=== PATIENT | female | born 1945 | race Caucasian/White ===

== ENCOUNTER 2019-06-08 07:09 | Inpatient (IN) | payer OTHER ==
[~2019-06-08] VITALS: Ht 182.2 cm; Wt 82.0 kg
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
[2019-06-08 07:11] VITALS: BP 167/80
[2019-06-08 07:37] LABS: ABSOLUTE NEUTROPHILS 7.2 thou/uL (1.4-8.2); BASOPHILS 1.3 % (0.0-2.0); EOSINOPHILS 2.4 % (0.0-3.0); HEMATOCRIT 39.7 % (37.0-47.0); HEMOGLOBIN 13.1 gm/dL (12.0-15.0); LYMPHOCYTES 19.6 % (24.0-44.0); MCV 87.9 fL (80.0-100.0); MONOCYTES 6.6 % (1.0-8.0); PLATELET COUNT 297 thou/uL (150-400); POLYS 70.1 % (36.0-66.0); RBC 4.51 mil/uL (4.20-5.00); RDW 14.2 % (10.5-14.5); WBC 10.2 thou/uL (4.0-11.0)
[2019-06-08] MEDS ORDERED: VITAMIN B-121000 MC2 SUBLING (07:40)
[2019-06-08] MEDS ORDERED: DEPAKOTE 250MG250 MG PO (07:40)
[2019-06-08] MEDS ORDERED: LORAZEPAM 0.50.5 MG PO (07:42)
[2019-06-08] MEDS ORDERED: SEROQUEL 25 MG25 M1 PO (07:42)
[2019-06-08 07:44] LABS: ANION GAP 9 mmol/L (7-16); BUN 11 mg/dL (7-18); CHLORIDE 106 mmol/L (98-107); CO2 27 mmol/L (21-32); CREATININE 0.9 mg/dL (0.6-1.0); GLUCOSE 107 mg/dL (74-106); POTASSIUM 3.6 mmol/L (3.5-5.1); SODIUM 142 mmol/L (136-145)
[2019-06-08 07:51] LABS: URINE BILIRUBIN NEGATIVE (Negative); URINE BLOOD 1+ (Negative); URINE CLARITY CLEAR; URINE COLOR YELLOW; URINE GLUCOSE-RANDOM* NEGATIVE (Negative); URINE KETONES NEGATIVE (Negative); URINE NITRITE-REFLEX NEGATIVE (Negative); URINE PROTEIN (DIPSTICK) NEGATIVE (Negative); URINE UROBILINOGEN 0.2 E.U./dl (0.2-1.0)
[2019-06-08 07:52] LABS: URINE LEUKOCYTES-REFLEX 2+ (Negative)
[2019-06-08 07:54] LABS: ALBUMIN 4.2 g/dL (3.4-5.0); MAGNESIUM 1.9 mg/dL (1.8-2.4); SGOT 21 U/L (15-37); SGPT 24 U/L (30-65); TOTAL BILIRUBIN 0.4 mg/dL (<0.1-1.0); TOTAL PROTEIN 7.6 g/dL (6.4-8.2); TROPONIN-I <0.06 ng/mL (<0.06)
[2019-06-08 08:00] LABS: AMP/METHAMP Negative (Negative); BARBITURATES Negative (Negative); BENZODIAZEPINES Negative (Negative); COCAINE Negative (Negative); METHADONE Negative (Negative); OPIATES Negative (Negative); PCP Negative (Negative)
[2019-06-08 08:38] LABS: SQUAMOUS 0-3 Few /LPF (0-3)
[2019-06-08 08:40] LABS: BACTERIA-REFLEX 1-9 Few /HPF (None Seen); CASTS None Seen /LPF (None Seen); CRYSTALS None Seen /LPF (None Seen); URINE RBC None Seen /HPF (0-2); URINE WBC-REFLEX 0-5 Rare /HPF (0-5)
--- NOTE | 2019-06-08 09:49 | EKG ---
[facility] [place] [address] ELECTROCARDIOGRAM REPORT Name: MARIAM LOPEZ Room #: 170-7 ADM IN M.R.#: [id number] Admission: 06/08/19 Attend Phys: Alphonso Ochoa DO Discharge: Date of : 41 Report #: [id number] THIS REPORT FOR: cc: José Miguel Oliveros MD, James A. MD Couchonnal, Luis F. MD ~ THIS REPORT FOR: //name// [facility] ED Test Date: 2019-06-08 Test Time: 07:48:20 Pat Name: MARIAM LOPEZ Department: Room: [facility] Gender: F Clay Digger: melba : 1945 Requested By: Damian Banks Order Number: [id number] MD: Marciano Calhoun Measurements Intervals [place] Rate: 80 P: 69 IN: 168 QRS: 52 QRSD: 93 T: 51 QT: 395 QTc: 456 Interpretive Statements Sinus rhythm No previous ECG available for comparison Electronically Signed On 06-08-2019 9:47:41 CDT by Marciano Calhoun [email or web address] <ELECTRONICALLY SIGNED> By: Marciano Calhoun MD 06/08/19 0947 Marciano Calhoun MD /HEMA
--- NOTE | 2019-06-08 10:21 | NUR ---
Report called LILIANA Pina
[2019-06-08 10:48] VITALS: BP 161/98
[2019-06-08 11:29] VITALS: BP 174/78
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
[2019-06-08 21:15] VITALS: BP 150/82
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
--- NOTE | 2019-06-09 02:36 | NUR ---
ASSUMED CARE OF PT AT 1900HRS. PT IS ALERT BUT ONLY ORIENTED TO SELF. PT IS UP AD [place]. PT WAS PLEASANT AND SOCIALIZING WITH PEERS. ASSESSMENT CHARTED. PT DENIED PAIN, NAUSEA, SI, HI, AH, AND VH. PT TOOK ALL MEDS WHOLE WITH WATER. PT WAS ABLE TO GET COMFORTABLE AND SLEEP PART OF THE SHIFT. VSS ANS NO S/S OF ACUTE DISTRESS. WILL CONTINIUE TO MONITOR.
--- NOTE | 2019-06-09 07:50 | NUR ---
0700 ASSUMED CARE OF PATIENT, PATIENT SLEEPING IN BED WITH EYES CLOSED. WILL CONTINUE TO OBSERVE.
[2019-06-09 08:04] VITALS: BP 122/84
--- NOTE | 2019-06-09 09:25 | NUR ---
PATIENT UP IN BATHROOM GETTING READY TO COME OUT TO DAYROOM. MEDICATIONS TAKEN WHOLE WITHOUT DIFFICULTY. PATIENT STATES 'I HAVE NO GOAL FOR TODAY, I HAVE NOT THOUGHT ABOUT IT". NO CONCERNS VOICED AT THIS TIME. LUNG SOUNDS CLEAR, ACTIVE BS, NO C/O PAIN. IN DAYROOM EATING BREAKFAST. WILL CONTINUE TO OBSERVE.
--- NOTE | 2019-06-09 16:33 | NUR ---
SUGAR contacted [facility] to speak about pt, but was told that all staff who could talk with SUGAR about pt was not in the office and to call back on Wednesday. SUGAR contacted Karin and received background info. 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 Through autopsy, pt's mother was confirmed to have Alzheimers and both grandparents were dx with dementia. Pt is , and does not have children. She does have a good relationship with both of her sisters. Karin said she will bring up shirts with short sleeves for pt on 06/10/19. SUGAR team will continue to follow pt during his stay on this unit.
--- NOTE | 2019-06-09 18:03 | NUR ---
PATIENT CONFUSED AND ASKING FOR HER PURSE. WANTING TO LEAVE STATING SHE WAS ONLY HERE VISITING. DISK RECORDIST ATTEMPTED TO REORIENT PATIENT. PATIENT WALKS AWAY FROM DISK RECORDIST. WILL CONTINUE TO OBSERVE
[2019-06-09 19:37] VITALS: BP 123/75
--- NOTE | 2019-06-09 22:57 | NUR ---
Care assumed of patient at 1915: Patient seated quietly in dayroom at start of shift. Interacting well with another peer. Patient became increasingly confused as the night progressed. Patient originally requested for her purse. Patient was able to be re-directed that her purse is locked up for safety. Patient accepted that answer. As the night progressed, patient demanding her purse, entering nurses station, verbally threatening to nursing staff. Patient stated that she will be staying at the hospital to monitor another patient for the night. 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 Patient alert and oriented to person only. Confused and forgetful. Patient denies pain or discomfort. Denies depression and anxiety. Denies SI/HI/AH/VH. No physical aggression shown. Patient became more restless as the night progressed, pacing the halls. Patient shown to her room several times but soon forgot. Patient stating that she needs to get to the 5th floor. Patient re-directed that she is on the 5th floor. Patient has a blunted, suspicious appearance. Easily irritable and agitated. Patient required constant assistance before she would lay in bed to go to bed. Patient worried that she needs to get up early in the AM to retrieve her purse so she can go to work. Patient laying quietly in bed at this time.
--- NOTE | 2019-06-10 08:02 | NUR ---
0700 ASSUMED CARE OF PATIENT, PATIENT IN BED AT THAT TIME. 0730 PATIENT UP IN BATHROOM GETTING READY FOR BREAKFAST.
--- NOTE | 2019-06-10 13:30 | NUR ---
PATIENT CONFUSED AND SLIGHTLY AGITATED. PATIENT REQUESTING TO LEAVE AND ASKING HOW TO GET OUT THE DOOR. ALODIZE MACHINE HELPER ATTEMPTED TO EXPLAIN TO PATIENT ABOUT HER STAY HERE AND PATIENT INSISTS THAT SHE WANTS TO CANCEL HER APPOINTMENT AND IS LEAVING. INSISTS THAT HER FRIEND (ANOTHER PATIENT) IS LYING TO ALODIZE MACHINE HELPER AND HAS BEEN LYING LATELY. WILL CONTINUE TO OBSERVE.
[2019-06-10 20:03] VITALS: BP 137/78
--- NOTE | 2019-06-10 21:32 | NUR ---
Care assumed of patient at 1915: Patient up and wandering halls at start of shift. Patient appears restless, blunted affect. Patient has suspicious appearance when speaking with staff. Patient sarcastic and irritable at times. Patient alert and oriented to person only. Patient confused and forgetful. Patient denies depression or anxiety. Denies SI/HI/AH/VH. Patient required several re-directions on current location and time. Patient not observed interacting much with peers. As staff attempted to interact with patient, she tried to avoid interaction. Patient pilfering through personal belongings. Observed moving linens and items from shelf to shelf, to bathroom, to bed. Patient took HS medication whole without difficulty. Ate 100% HS snack. Patient has not requested her purse thus far this shift. Patient has come out of her room a couple times, looking around, asking what is going on. Patient appears paranoid at times about surroundings and other peers. Patient did yell at nurse while nurse was attempting to re-orient her. No physical aggression observed at this time.
[2019-06-11 07:43] VITALS: BP 158/83
--- NOTE | 2019-06-11 09:29 | NUR ---
0700 ASSUMED CARE OF PATIENT, PATIENT IN ROOM AT THAT TIME. 0800 PATIENT IN DAYROOM SITTING AT TABLE WITH ANOTHER PATIENT EATING BREAKFAST AND COMMUNICATING WELL. AFTER BREAKFAST PATIENT UP AMB IN [place] THEN TO ROOM AT 0840. PATIENT STARTED TO ARGUE WITH LICENSED LAND SURVEYOR LICENSED LAND SURVEYOR WAS COMING IN ROOM WITH ROOMMATE. PATIENT STATED "THIS IS NOT HER ROOM AND SHE CAN NOT COME IN". LICENSED LAND SURVEYOR CALLED CONE BAKER MACHINE AND CONE BAKER MACHINE SPOKE WITH PATIENT IN HALLWAY. PATIENT CONFUSED AND ARGUMENTIVE REGARDING HER ROOM AND ROOMMATE. PATIENT SETTLED DOWN ONCE ROOMMATE WAS OUT OF ROOM. WILL CONTINUE TO OBSERVE.
[2019-06-11 19:50] VITALS: BP 147/83
[2019-06-11 22:46] VITALS: BP 147/83
--- NOTE | 2019-06-12 00:08 | NUR ---
PT HAS BEEN IN HER ROOM ALL NIGHT. SHE OCCASIONALLY GETS UP THINKING IT'S DAYTIME AND IS REMINDED BY STAFF THAT IT IS NIGHT TIME. SHE WALKS AROUND HER ROOM AND THEN LAYS BACK DOWN. SHE IS CURRENTLY SLEEPING. VSS. DENIES PAIN. PT IS PLEASANT BUT CONFUSED AND A/O X 1. PATIENT DENIES SI/HI/AVH. SHE IS CURRENTLY SLEEPING. APPEARS COMFORTABLE. ROUTINE ROUNDS TO ASSESS FOR STATUS AND SAFETY OF PATIENT. WILL CONTINUE TO MONITOR.
[2019-06-12 08:43] VITALS: BP 120/70
--- NOTE | 2019-06-12 18:18 | NUR ---
Assumed patient care at 0715. Vital signs have been stable. No new medical issues. Patient has been calm and cooperative; has been compliant with medications. No aggressive behaviors, no verbal aggression noted. Appetite is good. Patient wanders in and out of peers rooms, displays confusion. She is alert and oriented to self. Will continue to monitor and report to on-coming RN.
[2019-06-12 20:14] VITALS: BP 147/83
[2019-06-12 20:30] VITALS: BP 147/83
--- NOTE | 2019-06-13 03:04 | NUR ---
PATIENT UP IN DAYROOM UNTIL SHE WENT TO BED AROUND 2330. PATIENT HAS BEEN CALM TONIGHT. SHE HAS DISORGANIZED THINKING. SHE IS A/O X 1. SHE HAS BEEN FIXATED ON WHERE HER PURSE IS. SHE WAS LOOKING ALL OVER THE DAYROOM FOR IT. SHE STATES "DIDN'T YOU SEE THE STACK OF EVERYONE'S PURSES OVER THERE IN THE CORNER?" I LET HER KNOW THAT THERE WERE NO PURSES OVER THERE AND THAT HERS WAS IN THE LOCKER FOR SAFE KEEPING. I EVEN WENT AND PULLED IT OUT OF THE LOCKER TO SHOW HER. SHE WAS DELIGHTED BY THIS AND SHOWED GREAT RELIEF. PATIENT CONTINUED TO WANDER AROUND THE UNIT AND WAS LOOKING FOR A PLACE TO SLEEP. SHE DIDN'T WANT TO SLEEP IN HER ROOM BECAUSE SHE HADN'T PAID FOR IT. FINALLY CONVINCED HER AND HAD TO PHYSICALLY ASSIST PATIENT TO ROOM AND HELP HER PUT ON HER BED CLOTHES AND GIVE HER STEP BY STEP DIRECTION. 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 SHE WANTS TO MAKE SURE WE GET HER UP IN TIME TO GET READY TO GO. THEN SHE ASKED IF WE WERE CURRENTLY ON [place] TIME. PT WAS RESTLESS THIS EVENING. DID GIVE HER PRN TYLENOL 650 MG FOR GENERAL ACHES AND SEROQUEL 50MG PO FOR AGITATION AT 2317. PATIENT HAD HS SNACK TONIGHT. SHE ALSO COMMENTED SAYING, "I JUST LOVE THIS PLACE! EVERYONE IS SO HAPPY AND HAVING FUN!" PHYSICAL ASSESSMENT WNL. VSS. BED IN LOW POSITION. ROUTINE ROUNDS TO ASSESS FOR STATUS AND SAFETY OF PATIENT.
[2019-06-13 09:13] VITALS: BP 151/86
--- NOTE | 2019-06-13 17:23 | NUR ---
NEEDS ENCOURAGEMENT TO COME TO DINNING ROOM. CONTINES TO TALK ABOUT DISCHARGE AND HER JOB. VERY CONFUSED AND EXIT SEEKING. FAIR APPETITE FOR MEALS. GAIT STEADY. NO C/O PAIN.
[2019-06-13 19:41] VITALS: BP 139/79
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
[2019-06-14 07:26] VITALS: BP 149/91
[2019-06-14 09:42] VITALS: BP 149/91
--- NOTE | 2019-06-14 10:21 | NUR ---
1020 RESUMMED CARE FROM OVERNIGHT SHIFT THIS AM, PATIENT QUIET IN DAY ROOM WAITING FOR BREAKFAST. PATIENT TOOK MEDICATION WITHOUT INCIDENCE, PATIENTS ABDOMEN SOFT ROUND. BOWEL SOUNDS PRESENT IN ALL 4 QUADRANTS, PATIENT DENIES SI/HI/AH/VH AT PRESENT. PATIENT SEEMS TO HAVE SOME CONFUSION IN HER THINKING. PATIENT WAS WALKING AROUND WITH ALL HER BELONGINGS FROM HER ROOM IN A BROWN BAG. I ASKED PATIENT TO PUT HER THIMGS BACK INTO HER ROOM, PATIENT IS CALM AND RESTING IN A RECLINER. WILL CONTINUE TO MONITOR PATIENT FOR BEHAVIORS AND SAFETY. PATENT IS CALM COOPERATIVE
--- NOTE | 2019-06-14 13:14 | NUR ---
SUGAR faxed updates to [facility] yesterday and spoke with Giulia about pt possibly discharging soon, and provided verbal updates. SUGAR spoke to Giulia and arranged discharge for Wednesday06/19/19 @11am; [facility] does not provide transportation. SUGAR arranged transportation for pt via [employer] trip #[id number] SW team will continue to follow pt during her stay on this unit.
[2019-06-14 19:38] VITALS: BP 145/77
--- NOTE | 2019-06-15 | NUR ---
Assumed care of patient this pm shift. Patient in good spirits. Patient confused as to why she is here. Patient is calm and cooperative with cares. Patient takes medications whole. Patient denies pain. Patient denies hi/si. Patients assessment shows clear breath sounds, active bowel sounds, and s1 s2 heard with auscultation. Patient ambulates with out assistance. Patient is continent of bowel and bladder. We will continue to monitor.
[2019-06-15 07:32] VITALS: BP 131/82
[2019-06-15 08:00] VITALS: BP 131/82
--- NOTE | 2019-06-15 08:36 | NUR ---
PT SITTING ON COUCH THIS AM. PT STATED SHE DIDN'T KNOW WHAT MONTH IT WAS. THIS CALCINE FURNACE TENDER SAID THAT IT WAS LAST DAY OF MAY. PT STATED HER BIRTHDAY WAS IN JUNE. OFFERED PT A SHOWER TODAY. PT STATED SHE WILL GET ONE WHEN SHE GOES HOME. THIS CALCINE FURNACE TENDER STATED THAT IF NOT TODAY WILL SHE GET ONE, SHE DIDN'T COMMENT.
--- NOTE | 2019-06-15 08:40 | NUR ---
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 PT ASKED WHAT MED IS FOR, TOLD PT THAT IT WAS TO HELP WITH MOOD.
--- NOTE | 2019-06-15 11:50 | NUR ---
RT progress note- Little to no participation in the milieu as patient sleeps frequently. She does enjoy socializing and listening to music when awake. She has not displayed impulsive or adverse behaviors during leisure participation.
--- NOTE | 2019-06-15 15:55 | NUR ---
Pt was accpeted at [facility] and will d/c there skilled as soon as there is auth for her skilled stay. Giulia at [facility] confimred this and will call in the AM for a waste picker time. This is pending inusrance auth.
--- NOTE | 2019-06-15 16:47 | NUR ---
PT STILL CONFUSED AND WANTING TO KNOW WHICH ROOM SHE HAS. PT HAS BEEN WANTING TO GATHER HER CLOTHES. PT BELIEVES SHE IS GOING TO BE MOVING SOMEWHERE SOON.
--- NOTE | 2019-06-15 18:29 | NUR ---
PT HAS BEEN WALKING AROUND WITH A PAPER BAG WITH BELONGINGS IN THEM. PT THINKS SHE IS LEAVING TODAY. PT WAS SITTING BY DOOR AND WAITING. TOLD PT SHE IS NOT DISCHARGING TODAY.
[2019-06-15 19:14] VITALS: BP 151/80
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
--- NOTE | 2019-06-16 08:10 | NUR ---
PT OUT SITTING IN DINING ROOM FOR BREAKFAST. PT WANTED TO KNOW WHEN THE MEETING IS FOR THE FLIGHT ATTENDANTS. TOLD THIS PT THAT SHE IS STAYING HERE TODAY AND NO MEETING SCHEDUALED.
[2019-06-16 08:15] VITALS: BP 132/65
--- NOTE | 2019-06-16 08:37 | NUR ---
PT DID TAKE MEDS WITHOUT ANY ISSUES. NEEDED TO BE ENCOURAGED TO TAKE MEDS.
[2019-06-16 10:45] VITALS: BP 132/65
--- NOTE | 2019-06-16 11:35 | NUR ---
Nutrition: Assessed for early weekend LOS. Admit: dementia w/ aggressive behaviors. Per EMR, possible discharge indicated for 06/18. Pt does not eat meat pet EMR, ordered on a vegetarian diet. Met with pt briefly today. Pt was heavily focused on locking her door, wanting a tyson, and "stuff" not being stolen. Able to get pt to answer a few brief nutrition questions. She denies any appetite or nutrition concerns. States eating normal amounts for herself. Meal intakes show averaging ~80% of meals from 06/09-06/14; ate 100% of all meals yesterday. Pt would not cooperate for further interview. No intervention needs indicated at this time given high po intake. Weight slightly overweight, but near normal BMI at 25.2 kg/m2 (184#). Keep low nutrition risk.
[2019-06-16 19:30] VITALS: BP 154/88
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
[2019-06-17 09:22] VITALS: BP 136/69
[2019-06-17 09:52] VITALS: BP 136/69
--- NOTE | 2019-06-17 10:08 | NUR ---
1005 RESUMMED CARE FROM OVERNIGHT SHIFT THIS AM, PATIENT WAS IN ROOM LYING QUIETLY IN ROOM. PATIENT GOT UP ATE BREAKFAST AND TOOK MEDICATION WITHOUT INCIDENCE. PATIENT IS CONFUSED QUIET COOPERATIVE PATIENTS ABDOMEN SOFT ROUND AND ROUND BOWEL SOUNDS PRESENT IN ALL 4 QUADRANTS. PATIENTS LUNGS CLEAR PATIENT IS ASKING WHEN SHE CAN GO HOME. PATIENT DENIES SI/HI/AH/VH AT PRESENT WILL CONTINUE TO MONITOR PATIENT FOR SAFETY AND BEHAVIORS.
--- NOTE | 2019-06-17 17:26 | NUR ---
SW attempted to meet with patient 1:1 in lieu of group. Patient was sleeping.
[2019-06-17 19:31] VITALS: BP 151/85
--- NOTE | 2019-06-17 22:53 | NUR ---
Care assumed of patient at 1915: Patient pilfering in her room at start of shift. Patient moving clothing, linens, papers, toiletries about her room and shelves. Patient alert and oriented to person only. Patient confused and forgetful. Patient asking where she is. Denies pain or discomfort. Patient did make a statement about nurse being in her apartment and that all things in her apartment she owns. Not able to be oriented to current location. Had suspicious appearance toward nurse. Denies SI/HI/AH/VH. No specific delusional behaviors observed. No aggression or exit seeking behaviors observed. Patient took HS medication whole without difficulty. Ate 100% HS snack. Patient denies anxiety and depression, states that she is "just fine" and doesn't need to be here. Patient continues to pilfer about her room at this time. Patient declines any assist from nurse in getting ready for bed at this time.
[2019-06-18 07:34] VITALS: BP 139/74
[2019-06-18 10:03] VITALS: BP 137/74
--- NOTE | 2019-06-18 10:27 | NUR ---
1025 RESUMMED CARE FROM OVERNIGHT SHIFT THIS AM, PATIENT IN DAY ROOM SITTING QUIET. PATIENT ATE BREAKFAST TOOK MEDICATION WITHOUT INCIDENCE; PATIENTS ABDOMEN SOFT ROUND. BOWEL SOUNDS PRESENT LUNGS CLEAR PATIENT IS STILL CONFUSED AND FORGETFUL. PATIENT DENIES SI/HI AH/VH AT PRESENT PATIENT IS ASKING WHEN SHE CAN LEAVE. PATIENT TOLD THAT HER DISCHARGE DATE IS TOMMOROW AT 11:00 AM. PATIENT DID PARTICIPATE IN ONE GROUP THEN ASKED IF SHE CAN LIE DOWN IN HER ROOM. PATIENY IS RESTING COMFORTABLY WILL CONTINUE TO MONITOR PATIENT FOR BEHAVIORS AND SAFETY.
--- NOTE | 2019-06-18 10:28 | NUR ---
SUGAR faxed updates to [place].
[2019-06-18 20:01] VITALS: BP 144/81
--- NOTE | 2019-06-18 23:36 | NUR ---
ASSUMED CARE ON 06/18/19 @ 19:15, IN THE [facility], SOCIALIZING WITH PEERS. COOPERATED WITH MEDICATION AND ASSESSMENT. HRRR, S1S2 NOTED, ABD SOUNDS NOTED NORMOACTIVE. AMBULATES WITH A STEADY GAIT, UP AD CLARITA. CONFUSED AND ORIENTED TO PERSON ONLY. CAN STATE . NOT ORIENTED TO PRESENT DATE, PLACE OR SITUATION. DENIES SI, HI, AH, VH. 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 NEEDS DIRECTION AND ASSISTANCE WITH GETTING READY FOR BED, HOWEVER REPEATEDLY STATES THAT SHE CAN DO IT HERSELF. SHE THEN REARRANGES HER BELONGINGS, BUT MAKES NO PROGRESS TOWARDS TEETH BRUSHING, FACE WASHING OR GETTING INTO NIGHT CLOTHES. CONTINENT OF BLADDER, NO BM NOTED ON THIS SHIFT. REPEATEDLY TAKES OFF HER HOSPITAL BAND.
[2019-06-19 06:20] VITALS: BP 144/81
[2019-06-19 07:32] VITALS: BP 165/60
--- NOTE | 2019-06-19 08:09 | NUR ---
Assumed care at 0700. Upon initial rounds pt. was awake and encouraged to get dressed for breakfast. She offered no complaints.
[2019-06-19] MEDS ORDERED: SEROQUEL 25 MG25 M1 PO ×2 (08:30→08:32)
[2019-06-19] MEDS ORDERED: DEPAKOTE500 MG PO (08:30)
[2019-06-19] MEDS ORDERED: SEROQUEL 100 M100 M1 PO ×2 (08:31)
[2019-06-19] MEDS ORDERED: B-12500 MCG PO (08:32)
[2019-06-19] MEDS ORDERED: PEPCID20 MG PO (08:32)
--- NOTE | 2019-06-19 10:48 | NUR ---
SUGAR D/C note SUGAR faxed discharge docs to [facility]. SUGAR filed docs and confirmation page in pt's hospital file. No other needs for SW team to address at this time.
--- NOTE | 2019-06-19 11:20 | NUR ---
Pt. ate breakfast without difficulty. She remained in the dayroom during the AM. When papers were presented for her to sign prior to leaving she declined to sign. She wanted to read every word before leaving and then she acutally did not want to leave. It took security, psychiatrist and extra staff to get her in the w/c to be taken to the [facility] transportation. Report was called to Giulia sanchez at [facility] and a copy of the RX's were faxed to her as well at 1120 to [facility]. She left unit at 1115.
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
== END 2019-06-19 11:27 | DRG 57 ==
LOC: ER 07:09 → SBH 09:12 → EROBS 09:12 → SBH 09:12
PROVIDERS: Emergency Medicine; ADMIT Psychiatry & Neurology Psychiatry
DX: G30.9 Alzheimer's disease, unspecified (principal); F02.81 Dementia in other diseases classified elsewhere, unspecified severity, with behavioral disturbance; N39.0 Urinary tract infection, site not specified; F01.51 Vascular dementia, unspecified severity, with behavioral disturbance; G31.09 Other frontotemporal neurocognitive disorder; Z66 Do not resuscitate; F41.9 Anxiety disorder, unspecified; I10 Essential (primary) hypertension; Z79.899 Other long term (current) drug therapy
CPT/HCPCS: 10880